=== PATIENT | male | born 1985 | race Caucasian/White ===

== ENCOUNTER 2016-12-10 15:51 | Emergency (ER) | payer OTHER ==
[~2016-12-10] VITALS: Ht 177.8 cm; Wt 68.0 kg
[~2016-12-10 15:51] MED LIST: DOXY100C PO
[2016-12-10 15:53] VITALS: BP 133/76; PULSE 113; RESP 15; TEMP 98.3; O2SAT 98
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
[2016-12-10 17:36] LABS: AUTOMATED NEUTROPHIL # 7.4 TH/MM3 (1.8-7.7); BASOPHIL # 0.1 TH/MM3 (0-0.2); BASOPHIL % 0.6 % (0.0-2.0); EOSINOPHIL # 0.1 TH/MM3 (0-0.4); EOSINOPHIL % 0.7 % (0.0-4.0); HEMATOCRIT 45.1 % (39.0-51.0); LYMPH % 15.8 % (9.0-44.0); LYMPHOCYTE # 1.6 TH/MM3 (1.0-4.8); MEAN CORPUSCULAR HGB CONC 34.6 % (32.0-36.0); MONO % 7.6 % (0.0-8.0); NEUT % 75.3 % (16.0-70.0); PLATELET COUNT 250 TH/MM3 (150-450); RED BLOOD COUNT 5.37 MIL/MM3 (4.50-5.90); RED CELL DISTRIBUTION WIDTH 14.2 % (11.6-17.2); WHITE BLOOD COUNT 9.8 TH/MM3 (4.0-11.0)
[2016-12-10 17:38] LABS: HEMO FLAGS AUTO DIFF
[2016-12-10 17:47] LABS: AMPHETAMINE, URINE NEG (NEG); BARBITURATES, URINE NEG (NEG); COCAINE, URINE POS (NEG)
[2016-12-10 17:58] LABS: ALT (GPT) 34 U/L (12-78); ANION GAP 7 MEQ/L (5-15); AST (GOT) 16 U/L (15-37); BLOOD UREA NITROGEN 17 MG/DL (7-18); CHLORIDE 104 MEQ/L (98-107); GLOMERULAR FILTRATION RATE 95 ML/MIN (>89); POTASSIUM 4.4 MEQ/L (3.5-5.1); SODIUM (NA) 139 MEQ/L (136-145)
[2016-12-10 18:01] LABS: ALKALINE PHOSPHATASE 99 U/L (45-117); TOTAL BILIRUBIN ADULT 0.2 MG/DL (0.2-1.0)
[2016-12-10 18:20] VITALS: BP 130/78; PULSE 82; RESP 20; O2SAT 100
[2016-12-10 18:21] LABS: ACETAMINOPHEN LESS THAN 2.0 MCG/ML (10.0-30.0)
[2016-12-10 18:37] LABS: PLATELET ESTIMATE SMEAR NORMAL (NORMAL); PLATELET MORPHOLOGY NORMAL (NORMAL)
[2016-12-10 18:38] LABS: SCAN/DIFF AUTO DIFF CONFIRMED
[2016-12-10 19:04] VITALS: BP 121/66; PULSE 79; RESP 18; O2SAT 99
[2016-12-11 02:22] VITALS: BP 115/74; PULSE 70; RESP 18; O2SAT 99
[2016-12-11 13:48] VITALS: BP 130/75; PULSE 94; RESP 16; O2SAT 99
[2016-12-11 14:40] VITALS: BP 127/77; PULSE 68; RESP 18; O2SAT 100
== END 2016-12-11 17:35 | disposition home or self-care (01) ==
LOC: NEPD 15:51 → NEPJ 12-11 17:35
DX: R45.851 Suicidal ideations (principal); F17.210 Nicotine dependence, cigarettes, uncomplicated; F41.9 Anxiety disorder, unspecified; F32.9 Major depressive disorder, single episode, unspecified
CPT/HCPCS: 80053; 80307; 85025; 99285

== ENCOUNTER 2017-01-04 09:50 | Emergency (ER) | payer SELFPAY ==
[~2017-01-04] VITALS: Ht 177.8 cm; Wt 70.0 kg
[2017-01-04 09:52] VITALS: BP 139/95; PULSE 92; RESP 18; TEMP 98.7; O2SAT 99
[2017-01-04] MEDS ORDERED: MORPHINE SULFATE 4 MG/ML INJ IV PUSH ONE (10:15)
[2017-01-04] MEDS ORDERED: SODIUM CHLOR 0.9% 1000 ML INJ 1,000 ML IV ONE (10:15)
[2017-01-04] MEDS ORDERED: ONDANSETRON HCL 4 MG/2 ML VIAL IV PUSH ONE (10:15)
[2017-01-04 11:12] LABS: AUTOMATED NEUTROPHIL # 2.5 TH/MM3 (1.8-7.7); BASOPHIL % 0.6 % (0.0-2.0); EOSINOPHIL # 0.1 TH/MM3 (0-0.4); EOSINOPHIL % 2.1 % (0.0-4.0); HEMATOCRIT 41.2 % (39.0-51.0); HEMO FLAGS DIFF FINAL; LYMPH % 33.1 % (9.0-44.0); LYMPHOCYTE # 1.6 TH/MM3 (1.0-4.8); MEAN CELL VOLUME 85.8 FL (80.0-100.0); MEAN CORPUSCULAR HEMOGLOBIN 29.7 PG (27.0-34.0); MEAN CORPUSCULAR HGB CONC 34.6 % (32.0-36.0); MONO % 12.3 % (0.0-8.0); NEUT % 51.9 % (16.0-70.0); PLATELET COUNT 193 TH/MM3 (150-450); RED CELL DISTRIBUTION WIDTH 14.5 % (11.6-17.2); WHITE BLOOD COUNT 4.7 TH/MM3 (4.0-11.0)
[2017-01-04 11:24] LABS: ALT (GPT) 67 U/L (12-78); ANION GAP 3 MEQ/L (5-15); AST (GOT) 24 U/L (15-37); BICARBONATE 28.9 MEQ/L (21.0-32.0); CHLORIDE 106 MEQ/L (98-107); GLOMERULAR FILTRATION RATE 87 ML/MIN (>89); POTASSIUM 3.9 MEQ/L (3.5-5.1); SODIUM (NA) 138 MEQ/L (136-145)
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
[2017-01-04 11:30] LABS: BLOOD, URINE NEG (NEG); COMMENT (UR) CULT NOT INDICATED; CULTURE IF INDICATED CULT NOT INDICATED; GLUCOSE,URINE NEG (NEG); KETONE, URINE NEG (NEG); NITRITE,URINE NEG (NEG); PH, URINE 6.5 (5.0-8.5); URINE COLOR YELLOW (YELLW/STRAW)
[2017-01-04 11:32] LABS: ALKALINE PHOSPHATASE 111 U/L (45-117); BLOOD UREA NITROGEN 18 MG/DL (7-18); TOTAL BILIRUBIN ADULT 0.2 MG/DL (0.2-1.0)
[2017-01-04] MEDS ORDERED: IOHEXOL 350 MG/ML 10 ML VIAL (for RAD DIAG) IV ONE (12:53)
--- NOTE | 2017-01-04 13:22 | RADRPT ---
EXAM DATE/TIME: 01/04/2017 12:44 [facility] COMPARISON: CT ABDOMEN & PELVIS W CONTRAST, September 02, 2010, 21:41. INDICATIONS : Right groin pain for 1 month. IV CONTRAST: 90 cc Omnipaque 350 (iohexol) IV ORAL CONTRAST: No oral contrast ingested. RADIATION DOSE: 9.96 CTDIvol (mGy) MEDICAL HISTORY : None SURGICAL HISTORY : None. ENCOUNTER: Initial ACUITY: 1 month PAIN SCALE: 5/10 LOCATION: Right pelvis TECHNIQUE: Volumetric scanning of the abdomen and pelvis was performed. Using automated exposure control and ad justment of the mA and/or kV according to patient size, radiation dose was kept as low as reasonably achievable to obtain optimal diagnostic quality images. DICOM format image data is available electro nically for review and comparison. FINDINGS: LOWER LUNGS: The visualized lower lungs are clear. LIVER: Homogeneous density without lesion. There is no dilation of the biliary tree. No calcified gallston es. SPLEEN: Normal size without lesion. PANCREAS: Within normal limits. KIDNEYS: Normal in size and shape. There is no mass, stone or hydronephrosis. ADRENAL GLANDS: Within normal limits. VASCULAR: There is no aortic aneurysm. BOWEL/MESENTERY: The stomach, small bowel, and colon demonstrate no acute abnormality. There is no free intraperitone al air or fluid. ABDOMINAL WALL: Within normal limits. RETROPERITONEUM: There is no lymphadenopathy. BLADDER: No wall thickening or mass. REPRODUCTIVE: Within normal limits. INGUINAL: There is no lymphadenopathy or hernia. MUSCULOSKELETAL: There is degenerative change of the lower lumbar spine. CONCLUSION: 1. No acute abnormality is seen. 2. The inguinal regions appear normal. Braulio Schafer MD on January 04, 2017 at 13:17 Board Certified Radiologist. This report was verified electronically.
--- NOTE | 2017-01-04 14:32 | RADRPT ---
EXAM DATE/TIME: 01/04/2017 11:11 [facility] COMPARISON: No previous studies available for comparison. INDICATIONS : Right groin swelling and pain. MEDICAL HISTORY : Hepatitis C. SURGICAL HISTORY : Otoplasty. Chest tube. ENCOUNTER: Initial ACUITY: 4-6 days PAIN SCORE: 7/10 LOCATION: Right groin. AREA EVALUATED: Right groin. FINDINGS: The exam demonstrates a mildly enlarged, benign-appearing nodes in the right groin the largest measur ing 4.0 x 0.6 x 2.5 cm. These should be followed clinically to insure that is not enlarged. CONCLUSION: There are some mildly enlarged lymph nodes in the right groin. These demonstrate a fatty hilum and ar e likely benign. Clinical followup to ensure these do not enlarge with be warranted Ronak Graves MD on January 04, 2017 at 14:30 Board Certified Radiologist. This report was verified electronically.
[2017-01-04] MEDS ORDERED: DOXY100C PO (14:46)
[2017-01-04] MEDS ORDERED: IBUP-232 PO (14:46)
== END 2017-01-04 15:10 | disposition home or self-care (01) ==
LOC: NEPD 09:50
DX: R59.0 Localized enlarged lymph nodes (principal); R10.31 Right lower quadrant pain; F17.290 Nicotine dependence, other tobacco product, uncomplicated
CPT/HCPCS: 74177; 76882; 80053; 81001; 83605; 85025; 96361; 96374; 96375; 99285; J2270; J2405; J7030; Q9967

== ENCOUNTER 2017-10-28 06:26 | Emergency (ER) | payer SELFPAY ==
[~2017-10-28] VITALS: Ht 175.3 cm; Wt 73.0 kg
[~2017-10-28 06:26] MED LIST changes: +IBUP-232 PO
[2017-10-28 06:29] VITALS: BP 120/59; PULSE 75; RESP 30; O2SAT 99
[2017-10-28] MEDS ORDERED: SODIUM CHLOR 0.9% 1000 ML INJ 1,000 ML IV ONE ×2 (06:45)
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
[2017-10-28 06:53] LABS: AUTOMATED NEUTROPHIL # 7.4 TH/MM3 (1.8-7.7); BASOPHIL % 0.3 % (0.0-2.0); EOSINOPHIL % 0.1 % (0.0-4.0); HEMATOCRIT 37.6 % (39.0-51.0); HEMOGLOBIN 13.1 GM/DL (13.0-17.0); LYMPH % 12.2 % (9.0-44.0); LYMPHOCYTE # 1.1 TH/MM3 (1.0-4.8); MEAN CELL VOLUME 77.6 FL (80.0-100.0); MEAN CORPUSCULAR HEMOGLOBIN 27.1 PG (27.0-34.0); MEAN CORPUSCULAR HGB CONC 34.9 % (32.0-36.0); MEAN PLATELET VOLUME 7.9 FL (7.0-11.0); MONO % 8.2 % (0.0-8.0); MONOCYTE # 0.8 TH/MM3 (0-0.9); NEUT % 79.2 % (16.0-70.0); PLATELET COUNT 209 TH/MM3 (150-450); RED BLOOD COUNT 4.84 MIL/MM3 (4.50-5.90); RED CELL DISTRIBUTION WIDTH 14.7 % (11.6-17.2); WHITE BLOOD COUNT 9.4 TH/MM3 (4.0-11.0)
[2017-10-28 07:18] LABS: MAGNESIUM 2.2 MG/DL (1.5-2.5)
[2017-10-28 07:20] LABS: BLOOD UREA NITROGEN 22 MG/DL (7-18); CALCIUM 9.1 MG/DL (8.5-10.1); CHLORIDE 101 MEQ/L (98-107); CREATININE 0.93 MG/DL (0.60-1.30); GLOMERULAR FILTRATION RATE 93 ML/MIN (>89); GLUCOSE,RANDOM 122 MG/DL (74-106); SODIUM (NA) 135 MEQ/L (136-145)
[2017-10-28 07:21] LABS: ACETAMINOPHEN LESS THAN 2.0 MCG/ML (10.0-30.0)
[2017-10-28] MEDS ORDERED: LORazepam 2 MG/ML VIAL IV PUSH ONE (07:30)
[2017-10-28] MEDS ORDERED: METOCLOPRAMIDE HCL 10 MG/2 ML VIAL IV PUSH ONE (07:30)
[2017-10-28 07:59] VITALS: BP 132/62; PULSE 68; RESP 20; O2SAT 100
--- NOTE | 2017-10-28 11:25 | PD ---
Physical Exam Date Seen by Provider: Oct 28, 2017 Time Seen by Provider: 07:00 Narrative Patient was signed out to me at change of shift by Violetta Escobedo MD. Patient presented with complaints of not feeling his normal self. Patient admits to using drugs. Patient's urine tox screen showed multiple drugs including amphetamines, cocaine, opiates, benzos. Data Data Last Documented VS Vital Signs Date Time Temp Pulse Resp B/P (MAP) Pulse Ox O2 Delivery O2 Flow Rate FiO2 10/28/17 07:59 68 20 132/62 (85) 100 Room Air 10/28/17 06:32 2.00 Orders Orders Electrocardiogram (10/28/17 ) Iv Access Insert/Monitor (10/28/17 06:37) Complete Blood Count With Diff (10/28/17 06:37) Basic Metabolic Panel (Bmp) (10/28/17 06:37) Tylenol (Acetaminophen) (10/28/17 06:37) Salicylates (Aspirin) (10/28/17 06:37) Drug Screen, Random Urine (10/28/17 06:37) Ecg Monitoring (10/28/17 06:37) Sodium Chlor 0.9% 1000 Ml Inj (Ns 1000 M (10/28/17 06:45) Sodium Chlor 0.9% 1000 Ml Inj (Ns 1000 M (10/28/17 06:45) Alcohol (Ethanol) (10/28/17 06:42) Magnesium (Mg) (10/28/17 06:42) Arterial Blood Gas (Abg) (10/28/17 ) Lorazepam Inj (Ativan Inj) (10/28/17 07:30) Metoclopramide Inj (Reglan Inj) (10/28/17 07:30) Labs Laboratory Tests Test 10/28/17 06:40 10/28/17 06:42 10/28/17 07:50 White Blood Count 9.4 TH/MM3 Red Blood Count 4.84 MIL/MM3 Hemoglobin 13.1 GM/DL Hematocrit 37.6 % Mean Corpuscular Volume 77.6 FL Mean Corpuscular Hemoglobin 27.1 PG Mean Corpuscular Hemoglobin Concent 34.9 % Red Cell Distribution Width 14.7 % Platelet Count 209 TH/MM3 Mean Platelet Volume 7.9 FL Neutrophils (%) (Auto) 79.2 % Lymphocytes (%) (Auto) 12.2 % Monocytes (%) (Auto) 8.2 % Eosinophils (%) (Auto) 0.1 % Basophils (%) (Auto) 0.3 % Neutrophils # (Auto) 7.4 TH/MM3 Lymphocytes # (Auto) 1.1 TH/MM3 Monocytes # (Auto) 0.8 TH/MM3 Eosinophils # (Auto) 0.0 TH/MM3 Basophils # (Auto) 0.0 TH/MM3 CBC Comment DIFF FINAL Differential Comment Blood Urea Nitrogen 22 MG/DL Creatinine 0.93 MG/DL Random Glucose 122 MG/DL Calcium Level 9.1 MG/DL Sodium Level 135 MEQ/L Potassium Level 3.8 MEQ/L Chloride Level 101 MEQ/L Carbon Dioxide Level 18.0 MEQ/L Anion Gap 16 MEQ/L Estimat Glomerular Filtration Rate 93 ML/MIN Magnesium Level 2.2 MG/DL Salicylates Level 2.4 MG/DL Acetaminophen Level LESS THAN 2.0 MCG/ML Ethyl Alcohol Level LESS THAN 3 MG/DL Blood Gas Puncture Site LT RADIAL Blood Gas Patient Temperature 98.6 Blood Gas HCO3 21 mmol/L Blood Gas Base Excess -1.6 mmol/L Blood Gas Oxygen Saturation 95 % Arterial Blood pH 7.56 Arterial Blood Partial Pressure CO2 23 mmHg Arterial Blood Partial Pressure O2 88 mmHG Arterial Blood Oxygen Content 17.7 Vol % Arterial Blood Carboxyhemoglobin 2.9 % Arterial Blood Methemoglobin 0.7 % Blood Gas Hemoglobin 13.3 G/DL Oxygen Delivery Device NASAL CANNULA Blood Gas Liter Flow 2 L/M Urine Opiates Screen POS Urine Barbiturates Screen NEG Urine Amphetamines Screen POS Urine Benzodiazepines Screen NEG Urine Cocaine Screen POS Urine Cannabinoids Screen POS MDM Medical Record Reviewed: Yes Supervised Visit with IRA: No Narrative Course 32-year-old gentleman presents after using drugs. Patient states he used multiple drugs. Patient has been observed and is appropriately sober. He is been seen and evaluated by our [place] liaison. The patient actually has been in a rehab facility down in [facility]. Our liaison was able to touch base with them and they are willing to take him back. They are sending someone to pick them up at the [place] bus station. Patient will be discharged. He is appropriately sober and in no distress. Diagnosis Primary Impression: Polysubstance abuse Additional Impression: Overdose Qualified Codes: T50.901A - Poisoning by unspecified drugs, medicaments and biological substances, accidental (unintentional), initial encounter Additional Instruction: Stop using drugs. Scripts Unable to Obtain Active Prescriptions or Reported Meds Disposition: 01 DISCHARGE HOME Condition: Stable Michael Adams MD Oct 28, 2017 11:25
--- NOTE | 2017-10-28 15:28 | EKG ---
Date Performed: 10/28/2017 Time Performed: 06:34:58 PTAGE: 32 years EKG: Sinus rhythm WITH OCCASIONAL SUPRAVENTRICULAR PREMATURE COMPLEXES BORDERLINE ECG NO PREVIOUS TRACING DOCTOR: Guerda Nieto Interpretating Date/Time 10/28/2017 15:25:13
== END 2017-10-28 11:32 | disposition home or self-care (01) ==
LOC: NEPC 06:26
DX: T50.901A Poisoning by unspecified drugs, medicaments and biological substances, accidental (unintentional), initial encounter (principal); F19.10 Other psychoactive substance abuse, uncomplicated; B19.20 Unspecified viral hepatitis C without hepatic coma; F17.200 Nicotine dependence, unspecified, uncomplicated; R94.31 Abnormal electrocardiogram [ECG] [EKG]
CPT/HCPCS: 36600; 80048; 80307; 82805; 83735; 85025; 93005; 96361; 96374; 96375; 99284; J2060; J2765; J7030